=== PATIENT | male | born 1995 | race Caucasian/White ===

== ENCOUNTER → 2024-04-03 13:41 | Outpatient (CLI) | payer OTHER, SELFPAY ==
--- NOTE | 2024-04-03 13:52 | DI.RAD.S_ITS ---
PROCEDURE: XR WRIST RT 2V INDICATIONS: right wrist swelling/pain/tender mid dorsum/lateral TECHNIQUE: 2 views of the wrist were acquired. COMPARISON: None. FINDINGS: Bones: Minimally displaced fracture of the ulnar styloid. Questionable intra-articular fracture of the radial styloid. Soft tissues: No suspicious soft tissue calcifications. IMPRESSION: Tiny chip fracture of the ulnar styloid. Questionable intra-articular fracture of the medial radial styloid. Correlate with point tenderness. Dictated by: Brien Martin M.D. on 04/03/2024 at 14:17 Approved by: Brien Martin M.D. on 04/03/2024 at 14:18
--- NOTE | 2024-04-03 13:52 | DI.RAD.S_ITS ---
PROCEDURE: XR HAND RT MIN 3V INDICATIONS: FOOSH R wrist/Prox 4/5 metacarpal tenderness/swell TECHNIQUE: 3 views of the hand(s) acquired. COMPARISON: None. FINDINGS: Bones: No fractures or dislocations. Carpal bones are normally aligned. No suspicious bony lesions. Soft tissues: No suspicious soft tissue calcifications. IMPRESSION: No acute bony abnormality. Dictated by: Brien Martin M.D. on 04/03/2024 at 14:18 Approved by: Brien Martin M.D. on 04/03/2024 at 14:18
== END ==
PROVIDERS: Referring Provider Student in an Organized Health Care Education/Training Program; Visit Provider Student in an Organized Health Care Education/Training Program
DX: S52.614A Nondisplaced fracture of right ulna styloid process, initial encounter for closed fracture (principal); M25.531 Pain in right wrist; M79.89 Other specified soft tissue disorders; W11.XXXA Fall on and from ladder, initial encounter
CPT/HCPCS: 73100; 73130